=== PATIENT | male | born 1970 | race Caucasian/White ===

== ENCOUNTER 2017-01-16 18:36 | Emergency (ER) | payer BC ==
--- NOTE | ~2017-01-16 | CT4 ---
[facility]. [facility] A Service of [facility] RADIOLOGY TEXT RESULTS PATIENT: RUDY THAPA LOCATION: SED : 70 UNIT #: [id number] AGE: [address]: JORJE RODRIGUEZ SEX: M ORDER DR: [id number] [place] [id number] E MR#: [id number] #: [id number] NAME: RUDY THAPA : 1970 SEX: M STUDY DATE/TIME: 01/16/2017 19:36 UNIT: SED ROOM: STUDY DESCRIPTION: CT Abd and Pelv Wo Cont Attending Physician: Jorje Rodriguez Ordering Physician: Physician Non-Staff Primary Care Physician: Mani Waddell Jr., M.D. MEDICAL IMAGING REPORT This report is preliminary unless electronic signature is present. EXAM Abdomen and pelvis CT without contrast, 01/16/2017 INDICATION 46-year-old male with left-sided flank pain that started today. History of kidney stones. Status post cholecystectomy. TECHNIQUE Noncontrast CT of the abdomen and pelvis was performed and compared 11/15/2012. This CT exam was performed with one or more of the following radiation dose reduction techniques: automatic exposure control, adjustment of mA and/or kV according to patient size, and iterative reconstruction. FINDINGS CT ABDOMEN: Exam markedly degraded by noncontrast technique. There is some pleural thickening in the left lung base. Noncalcified nodule measuring about 3 mm in the subpleural left lower lobe unchanged from 2012 and therefore benign. No pericardial or pleural effusion. Aorta unremarkable. Spleen, adrenal glands, pancreas unremarkable. Gallbladder surgically absent. Liver demonstrates fatty infiltration. There are tiny nonobstructing stones in both kidneys. There is minimal hydroureter and early hydronephrotic change of the left kidney secondary to an obstructing 2-3 mm stone just proximal to or at the left UVJ level. CT PELVIS: Small umbilical hernia containing fat only. Tiny reactive retroperitoneal nodes present. Bladder unremarkable. Prostate unremarkable. No drainable fluid collection in the pelvis. Bowel and appendix normal. Tiny inguinal hernias containing fat. [facility] A Service of [facility] RADIOLOGY TEXT RESULTS PATIENT: RUDY THAPA LOCATION: [facility] [place] : 70 UNIT #: [id number] AGE: [address]: JORJE RODRIGUEZ SEX: M ORDER DR: Osseous structures demonstrate no suspicious bone lesion. IMPRESSION 1. Tiny 2-3 mm stone in the distal left ureter at or just proximal to the left UVJ. Minimal hydroureter or hydronephrosis. 2. Fatty infiltration of the liver. 3. Normal appendix. 4. Gallbladder surgically absent. 5. Benign left lower lobe nodule. Dictated by... Sebastián Barr M.D. THIS IS AN ELECTRONICALLY VERIFIED REPORT Sebastián Barr M.D. at 01/17/2017 7:09 PM ALEC/joão TD: 01/16/2017 22:25 JOB #: [id number] MEDICAL IMAGING REPORT Page 1 of 1
[~2017-01-16 18:36] MED LIST: ASPIRIN PO; BENTYL10 MG PO; COZAAR PO; FLAGYL PO; LIPITOR PO; PHENERGAN25 M1 PO; PROZAC PO; ROBAXIN500 MG PO; ZOCOR PO; ZOFRAN PO
[2017-01-16 19:07] LABS: URINE SOURCE CLEAN CATCH
[2017-01-16 19:09] LABS: URINE APPEARANCE CLEAR; URINE BILIRUBIN NEG (NEG); URINE BLOOD 3+ (NEG); URINE COLOR YELLOW; URINE GLUCOSE 300 MG/DL (NORM); URINE KETONE TRACE (NEG); URINE LEUKOCYTE ESTERASE NEG (NEG); URINE NITRATE NEG (NEG); URINE PROTEIN NEG (NEG); URINE SPECIFIC GRAVITY 1.025 (1.003-1.035); URINE UROBILINOGEN 0.2 MG/DL (NORM)
[2017-01-16 19:10] LABS: MICRO INDICATED? YES
[2017-01-16 19:11] LABS: BASOPHIL# 0.1 X10e3 (0-0.3); BASOPHIL% 0.6 % (0-2.5); CULTURE INDICATED? NO; DIFF IND NO; EOSINOPHIL# 0.3 X10e3 (0-0.7); HEMATOCRIT 48.4 % (38.0-50.0); HEMOGLOBIN 16.7 gm/dL (13.0-16.0); LYMPHOCYTE# 2.8 X10e3 (1.0-3.5); LYMPHOCYTE% 29.1 % (17.0-45.0); MEAN CELL VOLUME 89.7 FL (83-96); MEAN CORPUSCULAR HEMOGLOBIN 30.9 PG (28-34); MEAN CORPUSCULAR HGB CONC 34.5 g/dL (30-36); MEAN PLATELET VOLUME 9.1 FL (6.5-11.5); MONOCYTE# 0.9 X10e3 (0-1.0); MONOCYTE% 9.2 % (3.0-12.0); NEUTROPHIL# 5.5 X10e3 (1.5-7.1); NEUTROPHIL% 58.1 % (40-75); PLATELET COUNT 158 X10e3 (140-420); RED CELL DISTRIBUTION WIDTH 12.3 % (11.0-15.5); URINE BACTERIA NEG (NEG); URINE SQUAMOUS EPITHELIAL CELL FEW /[HPF]; URINE WBC 0-2 /[HPF] (0-5); WHITE BLOOD COUNT 9.5 X10e3 (4.0-10.5)
[2017-01-16 19:21] LABS: BUN/CREATININE RATIO 14.54; CALCIUM SERUM 8.6 mg/dL (8.4-10.2); CREATININE SERUM 1.1 mg/dL (0.6-1.4); GLOM FILT RATE Estimated 80.1 mL/min (>60)
== END 2017-01-16 21:34 | disposition home or self-care (01) ==
LOC: SED 18:36
PROVIDERS: Physician Assistant
DX: I10 Essential (primary) hypertension (principal); F41.9 Anxiety disorder, unspecified; Z88.0 Allergy status to penicillin; Z88.8 Allergy status to other drugs, medicaments and biological substances
CPT/HCPCS: 36415; 74176; 80048; 81003; 85025; 96361; 96374; 99284; J1885